=== PATIENT | male | born 1940 | race Caucasian/White ===

== ENCOUNTER → 2016-07-07 | Outpatient (CLI) | payer OTHER ==
--- NOTE | 2016-07-07 20:22 | DIREP ---
PROCEDURE:US KIDNEYS-BILAT COMPARISON:None. INDICATIONS:KIDNEY FAILURE TECHNIQUE:Ultrasound examination was performed of the kidneys and bladder. FINDINGS: RIGHT KIDNEY:Surgically absent LEFT KIDNEY:11.72 cm x 5.44 cm x 6.16 cm RIGHT KIDNEY: Surgically absent. LEFT KIDNEY: Normal. No hydronephrosis. BLADDER:Normal. OTHER:Negative. CONCLUSION: 1. Unremarkable left kidney and bladder. 2. Surgically absent right kidney. Dictated by: Abel Solomon M.D. on 07/07/2016 at 08:21 PM
--- NOTE | 2016-07-08 08:48 | DIREP ---
PROCEDURE:US DUPLEX LOWER EXTREMITY ARTERY BILAT COMPARISON:None. INDICATIONS:PAIN WHEN WALKING TECHNIQUE:A comprehensive color duplex Doppler ultrasound examination of the bilateral lower extremities was performed. Color image and bidirectional spectral Doppler wave form analysis, and peak systolic flow measurements of the common femoral, profunda femoral, superficial femoral, and popliteal arteries were performed. Ankle/brachial indices were measured at the distal posterior tibial artery and anterior tibial/dorsalis pedis. FINDINGS: RIGHT LOWER EXTREMITY: PT JULIET: 0.9. AT/DP JULIET: 0 point no. COMMON FEMORAL:175 cm/sTriphasic PROFUNDA FEMORIS:314 cm/sTriphasic SUPERFICIAL FEMORAL (prox):122 cm/sTriphasic SUPERFICIAL FEMORAL (mid):108 cm/smonophasic SUPERFICIAL FEMORAL (dist):150 cm/sbiphasic POPLITEAL:96 cm/sbiphasic POSTERIOR TIBIAL:144 cm/smonophasic PERONEAL:126 cm/sbiphasic ANTERIOR TIBAL:144 cm/sbiphasic DORSALIS PEDIS:86 cm/smonophasic LEFT LOWER EXTREMITY: PT JULIET: 0.8. AT/DP JULIET: 0.8. COMMON FEMORAL:283 cm/sTriphasic PROFUNDA FEMORIS:179 cm/sbiphasic SUPERFICIAL FEMORAL (prox):248 cm/sbiphasic SUPERFICIAL FEMORAL (mid):493 cm/smonophasic SUPERFICIAL FEMORAL (dist):58 cm/smonophasic POPLITEAL:44 cm/sbiphasic POSTERIOR TIBIAL:41 cm/sbiphasic PERONEAL:44 cm/smonophasic ANTERIOR TIBIAL:72 cm/sbiphasic DORSALIS PEDIS:38 cm/smonophasic CONCLUSION:Monophasic waveforms with elevated velocity at the level of the mid superficial femoral arteries bilaterally consistent with significant stenosis. ABIs greater than 1.4 indicate noncompressible vessels, likely to have significant peripheral vascular disease (PVD). ABIs of 0.91 to 1.3 indicate no significant obstructive disease. ABIs of 0.41 to 0.90 indicate grade I claudication. ABIs less than 0.4 indicate limb-threatening ischemia of grade I or grade II. % stenosisPSV (cm/s)Velocity ratio0-19<150<[id number]>75>300>4 Dictated by: Efe Tamayo M.D. on 07/08/2016 at 08:40 AM
== END | disposition home or self-care (01) ==
LOC: RAD 09:57
DX: I70.213 Atherosclerosis of native arteries of extremities with intermittent claudication, bilateral legs (principal); N18.9 Chronic kidney disease, unspecified; I25.9 Chronic ischemic heart disease, unspecified
CPT/HCPCS: 76770; 93922; 93925

== ENCOUNTER → 2024-01-12 | Outpatient (CLI) | payer OTHER | END | disposition home or self-care (01) | LOC: RAD 08:45 | PROVIDERS: ATTEND Student in an Organized Health Care Education/Training Program | DX: I1A.0 Resistant hypertension (principal); Z94.0 Kidney transplant status | CPT/HCPCS: 93975 ==